=== PATIENT | female | born 1950 | race American Indian/Alaskan Native ===

== ENCOUNTER 2017-06-08 22:57 | Emergency (ER) | payer MEDICARE ==
[~2017-06-08 22:57] MED LIST: ADRENALIN ONE; CALCIUM CHLORIDE IV ONE; INTROPIN DRIP 800 MG/D5W 250 ML IV ONE; SODIUM BICARBONATE IV ONE
[2017-06-08] MEDS ORDERED: NACL 0.9% 1000 ML 1,000 ML ONE ×2 (23:36→23:38)
[2017-06-08] MEDS ORDERED: NACL 0.9% 1000 ML 1,000 ML IV ONE (23:40)
--- NOTE | 2017-06-09 01:17 | Emergency Department Report ---
HPI - General Time Seen by Provider: 06/09/17 00:04 - HPI HPI: This is a 67-year-old -[place] female who presents to the emergency department via EMS from home in cardiac arrest. EMS says that the patient was last seen normal and alive around 9:30 PM. EMS was called about 10:30 PM, which is about 15 minutes prior to presentation here with the report that the patient was found unresponsive. When EMS got to the patient, she was pulseless and asystolic. They were unable to intubate her. They placed a peripheral line and gave her one dose of epinephrine and did chest compressions with ACLS protocol. The patient presents still pulseless, not intubated, with chest compressions underway. There is a report that family is on their way to the hospital. At first, the only past medical history we knew of was diabetes and hypertension. The daughter later was able to fill in that she also has a history of coronary artery disease with SD, neuropathy and hyperlipidemia. ED Past Medical Hx - Past Medical History Hx Hypertension: Yes Hx Heart Attack/AMI: No Hx Diabetes: Yes Hx Renal Disease: No Hx Arthritis: Yes Hx Asthma: No Hx COPD: No - Surgical History Hx Appendectomy: Yes (AGE 12) Hx Breast Surgery: Yes (LEFT BREAST BX 1994) - Social History Smoking Status: Former Smoker - Medications Home Medications: Home Medications Medication Instructions Recorded Confirmed Last Taken Type Amitriptyline [Elavil] 1 tab PO QHS 02/18/14 02/22/14 02/21/14 History Aspirin [Aspirin BABY CHEW TAB] 1 tab PO DAILY 02/18/14 02/22/14 02/21/14 History Folic Acid 1 mg PO DAILY 02/18/14 02/22/14 02/21/14 History Hydralazine HCl [hydrALAZINE] 1 tab PO BID 02/18/14 02/22/14 02/22/14 History Hydrochlorothiazide 1 tab PO DAILY 02/18/14 02/22/14 02/21/14 History Insulin Glargine,Hum.rec.anlog 45 units SC QHS 02/18/14 02/22/14 02/21/14 History [Lantus] Losartan [Cozaar] 1 tab PO DAILY 02/18/14 02/22/14 02/22/14 History Metoprolol [Lopressor TAB] 200 mg PO DAILY 02/18/14 02/22/14 02/22/14 History Simvastatin 1 tab PO DAILY 02/18/14 02/22/14 02/21/14 History Travoprost [Travatan Z 0.004%] 1 drop OU DAILY 02/18/14 02/22/14 02/21/14 History metFORMIN [Glucophage] 1,000 mg PO BID 02/18/14 02/22/14 02/21/14 History ED Review of Systems ROS: Stated complaint: CARDIAC ARREST Other details as noted in HPI Comment: Unobtainable due to pts medical conditions Physical Exam - Physical Exam Physical Exam: GENERAL: The patient is ill-appearing and unresponsive. HENT: Normocephalic. Atraumatic. Patient has moist mucous membranes. EYES: The right pupil is fixed and dilated. The left pupil is completely opacified. NECK: Supple. Trachea is midline. CHEST/LUNGS: There are no spontaneous lung sounds or spontaneous breathing. HEART/CARDIOVASCULAR: There are no spontaneous heart sounds. ABDOMEN: Morbidly obese habitus. A midline firm area or ventral hernia is palpable but the generalized abdomen is soft. SKIN: Skin is warm but dry. NEURO: The patient is unresponsive to any verbal, tactile or painful stimuli. MUSCULOSKELETAL: There is no obvious deformity. There is no evidence of acute injury. - Central Line Placement Right Femoral Consent Obtained: emergent situation Time Out Performed: No Patient Placed on Monitor/Pulse Ox: Yes MD Prep: gloves Central Line Prep: Chlorhexidine scrub Ultrasound Used for Placement: Yes Central Line Lumen Inserted: triple Bloods Obtained for Lab: Yes Central Line Position: good blood return, sutured in place with nyl Complications: none - Intubation Time Out Performed: No Laryngoscope: other (Glydescope) Size: 3 ET Tube Size: 7.5 Tube Secured Depth (cm): 24 Tube Secured Location: lips Tube Placement Confirmation: visualized tube passing t, equal breath sounds bilat, confirmation by capnometr Intubation Complications: none ED Medical Decision Making - Medical Decision Making The patient presented pulseless and not intubated with chest compressions underway as part of ACLS. The patient was immediately intubated using the glydescope. She was given epinephrine and sodium bicarbonate while chest compressions continued. First pulse check showed PEA. The patient got another 2 rounds of epinephrine and eventually during a pulse check the patient was found to have a palpable femoral and carotid pulses. She had return of spontaneous circulation. We started the patient on a dopamine drip. However the patient eventually did have bradycardia, hypotension and once again lost her pulse. We went back into ACLS protocol where she received another round of epinephrine and sodium bicarbonate. She was once again in PEA. We did a couple rounds of this ACLS and once again had a return of spontaneous circulation. At this point I placed a triple lumen right femoral central line so that vasopressors could be given. After the central line was placed, once again the patient had bradycardia, hypotension and appeared to lose her pulse. We started ACLS protocol for a third time. As this was getting started, I quickly went and found the patient's daughter who says that she was the medical decision maker and when I asked of the patient had ever discussed with her wishes for resuscitation efforts, the daughter said that the patient told her that she did not want to be resuscitated and that she would've made herself a DO NOT RESUSCITATE. The patient's daughter was not there at the beginning of resuscitation efforts and there was no mention of any full code versus DO NOT RESUSCITATE status through EMS. The patient's daughter then signed the DO NOT RESUSCITATE form. We stopped ACLS protocol. The daughter and her were brought to bedside where they spent the last few moments with her and time of was then called at 0049. - Differential Diagnosis dysrhythmia, PE, SD Critical Care Time: Yes Critical care time in (mins) excluding proc time.: 45 Critical care attestation.: If time is entered above; I have spent that time in minutes in the direct care of this critically ill patient, excluding procedure time. Critical care time was spent on this patient and doing her initial evaluation, supervision of ACLS protocol, ordering of medications and titration of pressor, discussion with the patient's daughter. This does not include the time spent doing the intubation and central line procedures. Critical Care Time: 45 minutes ED Disposition Clinical Impression: Cardiac arrest, Respiratory arrest Disposition: DC-20 Is pt being admited?: No Referrals: PRIMARY CARE, [Primary Care Provider] - 3-5 Days
== END 2017-06-09 01:30 ==
LOC: ED 22:57
DX: I46.9 Cardiac arrest, cause unspecified (principal)
CPT/HCPCS: 31500; 36556; 92950; 96360; 99291; J0171; J1265; J7030